=== PATIENT | male | born 1940 | race Caucasian/White ===

== ENCOUNTER 2016-12-31 10:17 | Day surgery (SDC) | payer OTHER ==
[2016-12-27 12:19] VITALS: BMI 26.1
[2016-12-31 12:37] VITALS: BP 110/62; PULSE 61; TEMP 98.3
--- NOTE | 2017-01-01 11:13 | PATH ---
Surgical Pathology Report Patient Name: MYLES BYRD [facility]. Rec. #: [id number] /Age/Gender: 1940 (Age: 76) / M Account: [id number] Location: [facility], [facility]-ENDOSCOPY Taken: 12/31/2016 Received: 12/31/2016 Reported: 01/01/2017 Physicians: Hugo Jain M.D. Specimen(s) Received A: POLYP AT CECUM B: POLYP AT TRANSVERSE COLON C: POLYP AT LEFT COLON Clinical History Family history of colon cancer Polyps Final Diagnosis A. CECUM, POLYP, BIOPSY: TUBULAR ADENOMA. B. TRANSVERSE COLON, POLYP, BIOPSY: SCANT FRAGMENT OF SUPERFICIAL BENIGN COLONIC EPITHELIUM; INSUFFICIENT FOR DIAGNOSIS. C. LEFT COLON, POLYP, BIOPSY: TUBULAR ADENOMA. Electronically Signed Chen Lauren M.D. Gross Description A. Received in formalin, labeled "polyp at cecum" is a torre, irregular portion of soft tissue measuring 0.2 cm. in greatest dimension. The specimen is submitted in toto in one cassette. B. Received is a formalin filled container labeled "polyp at transverse colon." There is no tissue identified within the container. The formalin is filtered and the filter bag is submitted in one cassette. C. Received in formalin, labeled "polyp at left colon" is a torre, irregular portion of soft tissue measuring 0.3 cm. in greatest dimension. The specimen is submitted in toto in one cassette. 12/31/201612/31/2016
== END 2016-12-31 12:30 | disposition home or self-care (01) ==
LOC: FASU-ENDO 10:17
PROVIDERS: ATTEND Internal Medicine Gastroenterology
PROC: 0DBL8ZX Excision of Transverse Colon, Via Natural or Artificial Opening Endoscopic, Diagnostic (ICD-10-PCS; 2016-12-31)
PROC: 0DBM8ZX Excision of Descending Colon, Via Natural or Artificial Opening Endoscopic, Diagnostic (ICD-10-PCS; 2016-12-31)
PROC: 0DBH8ZX Excision of Cecum, Via Natural or Artificial Opening Endoscopic, Diagnostic (ICD-10-PCS; principal; 2016-12-31 11:24)
DX: Z12.11 Encounter for screening for malignant neoplasm of colon (principal); Z80.0 Family history of malignant neoplasm of digestive organs; D12.0 Benign neoplasm of cecum; D12.4 Benign neoplasm of descending colon; K63.5 Polyp of colon; K57.30 Diverticulosis of large intestine without perforation or abscess without bleeding
CPT/HCPCS: 88305-TC

== ENCOUNTER 2017-06-03 17:46 | Emergency (ER) | payer OTHER ==
--- NOTE | 2017-06-03 18:06 | PDOC ---
History of Present Illness - General History Source: Patient Exam Limitations: No Limitations - History of Present Illness Initial Comments: 06/03/17 18:46 The patient is a 76 year old male, with a significant past medical history of HTN, HLD, AAA s/p repair, and GI bleed who presents to the emergency department with intermittent episodes of left lower abdominal pain since yesterday. The patient describes his pain as sharp pain localized at left flank pain that radiates to his abdominal area. He notes having about 4-5 episodes of vomiting ( nonbilious and nonbloody). He notes his pain today has been consistent and constant since 3:00pm today. He notes yesterday having a similar type of pain that was alleviated after vomiting. He denies any history of kidney stones. He denies any recent injury or trauma. He denies any recent fevers, chills, headache or dizziness. He denies any recent constipation. He denies any recent chest pain or shortness of breath. He denies any recent dysuria, frequency, urgency or hematuria. Allergies: NKA Past surgical history: None reported. Social History: Nonsmoker. Denies EtOH use and recreational drug use. <Shyam Nixon - Last Filed: 06/03/17 18:46> <Cuba Winkler - Last Filed: 06/06/17 00:50> - General Chief Complaint: Pain Stated Complaint: LEFT LOWER abd pain Time Seen by Provider: 06/03/17 17:55 Past History <Shyam Nixon - Last Filed: 06/03/17 18:46> - Past Medical History Anemia: Yes (ON IRON) Asthma: No Cancer: No Cardiac Disorders: Yes (PALPITATIONS) CVA: No COPD: No CHF: No Dementia: No Diabetes: No GI Disorders: Yes (LOWER GI BLEED REQUIRING MULTIPLE BLOOD TRANSFUSIONS 04/2014) Disorders: No HTN: Yes (DX 2011) Hypercholesterolemia: Yes (DX 2009) Liver Disease: No Seizures: No Thyroid Disease: No - Surgical History Abdominal Surgery: No Appendectomy: No Cardiac Surgery: No Cholecystectomy: No Lung Surgery: Yes (BENIGN MASS REMOVAL-2004) Neurologic Surgery: No Orthopedic Surgery: Yes (ACL REPAIR- LEFT KNEE-) - Psycho/Social/Smoking Cessation Hx Anxiety: No Suicidal Ideation: No Smoking History: Former smoker Have you smoked in the past 12 months: No If you are a former smoker, when did you quit?: 2003 Hx Alcohol Use: No (NONE SINCE 1987) Drug/Substance Use Hx: No Substance Use Type: None Hx Substance Use Treatment: No <Cuba Winkler - Last Filed: 06/06/17 00:50> - Past Medical History Allergies/Adverse Reactions: Allergies Allergy/AdvReac Type Severity Reaction Status Date / Time No Known Allergies Allergy Verified 06/03/17 17:47 Home Medications: Ambulatory Orders Atenolol [Tenormin -] 25 mg PO DAILY 12/27/13 Psyllium Husk [Metamucil] 0.52 gm PO HS capsule 01/13/16 Atorvastatin Ca [Lipitor] 10 mg PO HS 01/21/16 Acetaminophen [Tylenol .Extra-Strength -] 1,000 mg PO PRN PRN 12/27/16 Ondansetron [Zofran *Odt*] 8 mg SL TID PRN #15 od.tablet 06/03/17 Oxycodone HCl/Acetaminophen [Percocet 5-325 mg Tablet] 1 tab PO Q4H #20 tablet MDD 8 06/03/17 Tamsulosin HCl [Flomax] 0.4 mg PO DAILY #30 cap.er.24h 06/03/17 Review of Systems - Review of Systems Able to Perform ROS?: Yes Comments:: 06/03/17 18:46 CONSTITUTIONAL: No reported: Fever, Chills, Diaphoresis, Generalized Weakness, Malaise, Loss of Appetite HEENT: No reported: Rhinorrhea, Nasal Congestion, Throat Pain, Throat Swelling, Difficulty Swallowing, Mouth Swelling, Ear Pain, Eye Pain, Visual Changes CARDIOVASCULAR: No reported: Chest Pain, Syncope, Palpitations, Irregular Heart Rate, Lightheadedness, Peripheral Edema RESPIRATORY: No reported: Cough, Shortness of Breath, SOB with Exertion, Orthopnea, Wheezing , Stridor, Hemoptysis GASTROINTESTINAL: +LLQ pain. No reported: Nausea, Vomiting, Diarrhea, Constipation, Melena, Hematochezia GENITOURINARY: No reported: Dysuria, Frequency, Urgency, Hesitancy, Flank Pain, Genital Pain MUSCULOSKELETAL: No reported: Myalgia, Arthralgia, Joint Swelling, Back pain, Neck Pain SKIN: No reported: Rash, Itching, Pallor HEMATOLOGIC/IMMUNOLOGIC: No reported: Easy Bleeding, Easy Bruising, Lymphadenopathy, Frequent infections ENDOCRINE: No reported: Unexplained Weight Gain, Unexplained Weight Loss, Heat Intolerance , Cold Intolerance NEUROLOGIC: No reported: Headache, Focal Weakness, Paresthesias, Vertigo, Lightheadedness, Unsteady Gait, Seizure, Mental Status Changes, Incontinence PSYCHIATRIC: No reported: Anxiety, Depression <Shyam Nixon - Last Filed: 06/03/17 18:46> *Physical Exam - Vital Signs Last Vital Signs Temp Pulse Resp BP Pulse Ox 98.1 F 47 L 20 162/82 99 06/03/17 17:47 06/03/17 17:47 06/03/17 17:47 06/03/17 17:47 06/03/17 17:47 - Physical Exam Comments: 06/03/17 18:46 GENERAL: The patient is awake, alert, and fully oriented, Nontoxic - in no acute distress. HEAD: Normocephalic, atraumatic. EYES: extraocular movements intact, sclera anicteric, conjunctiva clear. ENT: Normal voice, Moist mucous membranes. NECK: Normal range of motion, supple LUNGS: Breath sounds equal, clear to auscultation bilaterally. No wheezes, no rhonchi, no rales. HEART: Bradycadic. Regular rate and rhythm, without murmur, rub or gallop. ABDOMEN: Mild LLQ tenderness. Soft,, normoactive bowel sounds. No guarding, no rebound.No CVA tenderness EXTREMITIES: Normal range of motion, no edema. No clubbing or cyanosis. No cords , erythema, or tenderness. NEUROLOGICAL: No facial asymmetry, Normal speech. PSYCH: Normal mood, normal affect. SKIN: Warm, Dry, normal turgor. <Shyam Nixon - Last Filed: 06/03/17 18:46> Heart Score/ECG Review - ECG Impressions Comment:: 06/03/17 18:43 Twelve-lead EKG was performed and reviewed by me. There is normal sinus rhythm with a rate of 51 The axis is normal. incomplete RBBB There is normal R wave progression There are no ST or T wave abnormalities. Impression: sinus bradycardia <Cbua Winkler - Last Filed: 06/06/17 00:50> ED Treatment Course - LABORATORY CBC & Chemistry Diagram: 06/03/17 18:55 06/03/17 18:55 <Cuba Winkler - Last Filed: 06/06/17 00:50> Medical Decision Making - Medical Decision Making 06/03/17 18:22 76y M hx of mutliple medical problems including aaa s/p repair, hl, htn, gib presents with intermittent L sided abdominal pain associated with vomiting since yesterday. Pt endorses about 1 hr episode of L sided abd pain and a few episodes of nbnb vomiting yesterday, and one episode of sudden onset of L flank pain associated omiting lasting about 3 hrs and currently almost resolved. No associated fever/chills, numbness/tingling/weakness, chest pain, diaphoresis. on exam pt in no distress, HR bradycardic, abd soft with mild tenderness in LLL suspect possible kidney stones will ck labs, ua anticipate CT pt declines meds right now as he is asymptomatic 06/03/17 19:01 pt signed out to dr. Torres to fu with labs and reassess the pt <Cuba Winkler - Last Filed: 06/06/17 00:50> *DC/Admit/Observation/Transfer - Attestations Scribe Attestion: 06/03/17 18:46 Documentation prepared by Shyam Nixon, acting as medical front desk specialist for Cuba Winkler MD. <Shyam Nixon - Last Filed: 06/03/17 18:46> <C[place] Winkler - Last Filed: 06/06/17 00:50> Diagnosis at time of Disposition: Kidney stone on left side - Discharge Dispostion Disposition: HOME Condition at time of disposition: Stable - Prescriptions Prescriptions: Tamsulosin HCl [Flomax] 0.4 mg PO DAILY #30 cap.er.24h Oxycodone HCl/Acetaminophen [Percocet 5-325 mg Tablet] 1 tab PO Q4H #20 tablet MDD 8 Ondansetron [Zofran *Odt*] 8 mg SL TID PRN #15 od.tablet PRN Reason: Nausea - Patient Instructions Additional Instructions: Your CAT scan shows that you do have a 5 mm kidney stone that is causing some mild blockage of the urine flow. It is important that you follow-up with a urologist. If you do not have a urologist call Dr. Rendon at [phone] and appointment this week. Strain your urine. For the pain take Percocet one tablet as often as every 4-6 hours if needed the Percocet will make you drowsy so you cannot drive or go to work if you take it however during the daytime hours Naprosyn or ibuprofen may be adequate to control your pain. For nausea take Zofran 1 tablet as often as every 6-8 hours if needed. Take Flomax to help keep the urine flowing. Return to the emergency department immediately with ANY new, persistent or worsening symptoms. Continue any medications as previously prescribed by your physician. You should follow up with your primary doctor as soon as possible regarding today's emergency department visit. . Please make sure your doctor reviews the results of your emergency evaluation. Thank you for coming to the Emergency Department today for your care. It was a pleasure to see you today. Please note that your evaluation is INCOMPLETE until you follow-up with your doctor.
[2017-06-03 18:09] VITALS: TEMP 98.1; BMI 26.6
[2017-06-03 19:04] LABS: BASOPHIL 0.9 % (0-2.0); EOSINOPHIL 1.8 % (0-4.5); MCH 31.9 pg (25.7-33.7); MCHC 33.6 g/dl (32.0-35.9); MEAN CELL VOLUME 94.9 fl (80-96); NEUTROPHILS 80.5 % (42.8-82.8); PLATELET COUNT 186 K/MM3 (134-434); RDW 13.9 % (11.9-15.9); WHITE BLOOD COUNT 10.1 K/mm3 (4.0-10.8)
[2017-06-03 19:20] LABS: ALBUMIN 3.7 g/dl (3.5-5.0); ALK PHOS 46 U/L (32-92); ANION GAP 6 (8-16); BILIRUBIN,TOTAL 0.5 mg/dl (0.2-1.0); CALCIUM 9.4 mg/dl (8.4-10.2); CO2 30 mmol/L (22-28); GLUCOSE,RANDOM 106 mg/dl (74-106); SGOT/AST 16 U/L (10-42); SGPT/ALT 11 U/L (10-40); TOT PROT 6.7 g/dl (6.4-8.3)
--- NOTE | 2017-06-03 19:47 | PDOC ---
*Physical Exam - Vital Signs Last Vital Signs Temp Pulse Resp BP Pulse Ox 98.1 F 47 L 20 162/82 99 06/03/17 17:47 06/03/17 17:47 06/03/17 17:47 06/03/17 17:47 06/03/17 17:47 ED Treatment Course - LABORATORY CBC & Chemistry Diagram: 06/03/17 18:55 06/03/17 18:55 - ADDITIONAL ORDERS Additional order review: Laboratory Results 06/03/17 18:55 Sodium 136 Potassium 3.9 Chloride 100 Carbon Dioxide 30 H Anion Gap 6 L BUN 20 H D Creatinine 1.0 Creat Clearance w eGFR > 60 Random Glucose 106 Calcium 9.4 Total Bilirubin 0.5 D AST 16 ALT 11 Alkaline Phosphatase 46 Total Protein 6.7 Albumin 3.7 06/03/17 18:55 RBC 5.01 MCV 94.9 MCHC 33.6 RDW 13.9 MPV 8.0 D Neutrophils % 80.5 D Lymphocytes % 11.8 D Monocytes % 5.0 Eosinophils % 1.8 Basophils % 0.9 Progress Note - Progress Note Progress Note: Care of this patient was transferred to tn from Dr. swann at 1900 hrs. This is a 76-year-old male who comes in complaining of left flank pain that is Jessica times today. Patient has a workup pending to rule out renal colic. CT scan shows a 5 mm proximal left ureteral calculus with mild hydronephrosis in addition to that there is a right nephrolithiasis but no evidence of hydronephrosis or obstructive uropathy Patient's pain is resolved at this point Patient given prescriptions for Percocet, Zofran and Flomax Patient told to follow-up with a urologist Patient discharged home will follow-up with his primary care doctor for referral to a urologist *DC/Admit/Observation/Transfer Diagnosis at time of Disposition: Kidney stone on left side - Discharge Dispostion Disposition: HOME Admit: Yes - Patient Instructions Additional Instructions: Your CAT scan shows that you do have a 5 mm kidney stone that is causing some mild blockage of the urine flow. It is important that you follow-up with a urologist. If you do not have a urologist call Dr. Rendon at [phone] and appointment this week. Strain your urine. For the pain take Percocet one tablet as often as every 4-6 hours if needed the Percocet will make you drowsy so you cannot drive or go to work if you take it however during the daytime hours Naprosyn or ibuprofen may be adequate to control your pain. For nausea take Zofran 1 tablet as often as every 6-8 hours if needed. Take Flomax to help keep the urine flowing. Return to the emergency department immediately with ANY new, persistent or worsening symptoms. Continue any medications as previously prescribed by your physician. You should follow up with your primary doctor as soon as possible regarding today's emergency department visit. . Please make sure your doctor reviews the results of your emergency evaluation. Thank you for coming to the Emergency Department today for your care. It was a pleasure to see you today. Please note that your evaluation is INCOMPLETE until you follow-up with your doctor.
[2017-06-03 19:48] LABS: PH,URINE 6.5 (4.5-8); URINE APPEARANCE Clear; URINE BILIRUBIN Negative (NEGATIVE); URINE GLUCOSE (UA) Negative (NEGATIVE); URINE KETONE Negative (NEGATIVE); URINE LEUK ESTERASE Negative (NEGATIVE); URINE NITRITE Negative (NEGATIVE); URINE PROTEIN Trace (NEGATIVE); URINE UROBILINOGEN 0.2 (0.2-1.0)
[2017-06-03 19:57] LABS: URINE COLOR YELLOW
[2017-06-03 20:30] LABS: URINE BLOOD 3+ (NEGATIVE)
[2017-06-03 22:40] VITALS: BP 154/94; PULSE 51
--- NOTE | 2017-06-04 21:03 | EKG ---
Test Reason : Blood Pressure : / mmHG Vent. Rate : 051 BPM Atrial Rate : 051 BPM P-R Int : 146 ms QRS Dur : 104 ms QT Int : 466 ms P-R-T Axes : 066 007 061 degrees QTc Int : 429 ms SINUS BRADYCARDIA INCOMPLETE RIGHT BUNDLE BRANCH BLOCK BORDERLINE ECG NO PREVIOUS ECGS AVAILABLE REPEAT EKG IF CLINICALLY INDICATED Confirmed by MOLLY METCALF MD ([id number]) on 06/04/2017 9:02:52 PM Referred By: INDIRA Confirmed By:MOLLY METCALF MD
== END 2017-06-03 22:37 | disposition home or self-care (01) ==
LOC: FER 17:46
DX: N20.0 Calculus of kidney (principal); I10 Essential (primary) hypertension; E78.5 Hyperlipidemia, unspecified; I71.4 Abdominal aortic aneurysm, without rupture; R00.2 Palpitations; Z87.891 Personal history of nicotine dependence
CPT/HCPCS: 36415; 74176-TC; 80053; 81003; 85025; 93005; 99283-25

== ENCOUNTER 2017-06-13 12:34 | Day surgery (SDC) | payer OTHER ==
[2017-06-12 14:13] VITALS: BMI 24.3
[2017-06-13] MEDS ORDERED: ACETAMINOPHEN 1000 MG/100 ML VIAL (NON FORMULARY) IVPB ONE (14:28)
--- NOTE | 2017-06-13 14:28 | HP ---
History & Physical Update - History History: No Change - Physical Physical: No Change - Assessment Assessment: No Change - Plan Plan: No Change
[2017-06-13] MEDS ORDERED: DEXTROSE 5%-0.45% SALINE 1,000 ML IV SCH (14:30)
[2017-06-13] MEDS ORDERED: PROPOFOL 20 ML ONE (14:54)
[2017-06-13] MEDS ORDERED: LIDOCAINE HCL/PF 2% SDV 5ML VIAL ONE (14:55)
[2017-06-13] MEDS ORDERED: DEXAMETHASONE SOD PHOSPHATE 4 MG/1 ML VIAL ONE (14:56)
[2017-06-13] MEDS ORDERED: ceFAZolin SODIUM 1 GM VIAL IVPB ONE (15:15)
[2017-06-13] MEDS ORDERED: ceFAZolin SODIUM 1 GM VIAL ONE (15:18)
[2017-06-13] MEDS ORDERED: PROMETHAZINE HCL 25 MG/1 ML VIAL IVPUSH PRN (16:10)
[2017-06-13] MEDS ORDERED: oxyCODONE HCL 5 MG TABLET PO PRN (16:10)
[2017-06-13] MEDS ORDERED: LACTATED RINGERS SOLUTION 1,000 ML IV SCH (16:15)
[2017-06-13] MEDS ORDERED: ACETAMINOPHEN INJECTION 100 ML IVPB ONE (16:51)
--- NOTE | 2017-06-13 17:08 | OP ---
DATE OF OPERATION: 06/13/2017 PREOPERATIVE DIAGNOSES: Left ureteral stone, right renal stone, left renal colic. PROCEDURE: Cystoscopy, left ureteroscopic stone extraction, and left ureteral stent placement with retrograde pyelogram, and right ureteroscopic laser lithotripsy with retrograde pyelogram and right ureteral stent placement. SURGEON: Reynaldo Rendon MD DRAINS: A 6 x 26 double-J ureteral stent bilaterally. ESTIMATED BLOOD LOSS: Minimal. SPECIMEN: Stone. PREOPERATIVE INDICATIONS: The patient is a 76-year-old male who presents with left renal colic. He has a stone in his left ureter. He also has a stone in the right kidney. DESCRIPTION OF OPERATION: The patient was brought to the OR, placed on the table in supine position, given general anesthesia and IV antibiotics, and placed in the modified lithotomy position. Timeout was performed. Groin was prepped and draped sterilely. Cystoscopy was performed. The urethra and prostate appeared to be unremarkable. The bladder was also normal. The left UO was visualized, and there was a stone in the distal ureter. A rigid ureteroscope was passed into the left ureter. A stone basket was used, and the stone was extracted. The rest of the ureter was examined, and no other stones were seen. Left retrograde pyelogram was performed which also confirmed no other filling defects. However, there was some tortuosity of the upper ureter from the chronic obstruction. A 6 x 26 double-J ureteral stent was left in place with 1 loop in the kidney, 1 loop in the bladder. On the right side, similarly, a wire was passed up into the right kidney under fluoroscopic guidance. A 10-Spanish dual-lumen catheter was used to dilate the ureter, and over a second wire, after retrograde pyelogram, a flexible ureteroscope was passed. A stone was seen in the upper pole. This was broken up with a laser fiber. No other stones were seen in the kidney or along the course of the ureter. There did not appear to be any injuries along the ureter. The scope was removed. Over the remaining wire, another 6 x 26 double-J ureteral stent was left in place on the right side, and position was confirmed on fluoroscopy direct vision. The bladder was emptied. The patient was woken up. REYNALDO RENDON M.D. [id number]
[2017-06-13 17:53] VITALS: TEMP 97.7
[2017-06-13 18:38] VITALS: BP 164/80; PULSE 57
--- NOTE | 2017-06-17 15:08 | PATH ---
Surgical Pathology Report Patient Name: MYLES BYRD Med. Rec. #: [id number] /Age/Gender: 1940 (Age: 76) / M Account: [id number] Location: [facility] SURG[facility] Taken: 06/13/2017 Received: 06/14/2017 Reported: 06/17/2017 Physicians: Reynaldo Rendon M.D. Specimen(s) Received URETHRAL STONE Clinical History Urethral stone Final Diagnosis URETERAL STONE: CALCULUS (GROSS EXAM) SPECIMEN SENT FOR CHEMICAL ANALYSIS. Electronically Signed Saturnino Arredondo M.D. Gross Description Received fresh labeled "urethral stone" is a 0.4 cm in greatest dimension black, irregular calculus which is sent for chemical analysis. /06/14/201706/14/2017
== END 2017-06-13 18:38 | disposition home or self-care (01) ==
LOC: JASU-SURG 12:34
PROVIDERS: ATTEND Urology
PROC: BT14YZZ Fluoroscopy of Kidneys, Ureters and Bladder using Other Contrast (ICD-10-PCS; 2017-06-13)
PROC: 0TF38ZZ Fragmentation in Right Kidney Pelvis, Via Natural or Artificial Opening Endoscopic (ICD-10-PCS; principal; 2017-06-13 14:00)
PROC: 0T768DZ Dilation of Right Ureter with Intraluminal Device, Via Natural or Artificial Opening Endoscopic (ICD-10-PCS; 2017-06-13 14:00)
PROC: 0TC78ZZ Extirpation of Matter from Left Ureter, Via Natural or Artificial Opening Endoscopic (ICD-10-PCS; 2017-06-13 14:00)
DX: N20.1 Calculus of ureter (principal); N20.0 Calculus of kidney
CPT/HCPCS: 36415; 76000-TC; 82360; 88300-TC; 94760

== ENCOUNTER 2019-06-24 08:12 | Day surgery (SDC) | payer OTHER ==
[2019-06-23 09:33] VITALS: BMI 25.8
[2019-06-24] MEDS: CYCLOPENTOLATE 2% OPHTH SOLN 2 ML BOTTLE ONE ×3 (08:35→08:45)
[2019-06-24] MEDS: CIPROFLOXACIN 0.3% EYE DROPS 5 ML BOTTLE ONE ×3 (08:35→08:45)
[2019-06-24] MEDS: TROPICAMIDE 1% OPHTH SOLN 15 ML BOTTLE ONE ×3 (08:35→08:45)
[2019-06-24] MEDS: PHENYLEPHRINE 2.5% OPHTH SOLN 15 ML BOTTLE ONE ×3 (08:35→08:45)
[2019-06-24] MEDS ORDERED: LIDOCAINE 1% P/F 10 MG/ML VIAL ONE (09:23)
[2019-06-24] MEDS ORDERED: BSS (NA/CA/MG/K) BALANCED SALT SOLUTION OPHTH SOLN 15 ML BOTTLE ONE (09:23)
[2019-06-24] MEDS ORDERED: TETRACAINE 0.5% OPHTH SOLN 2 ML BOTTLE ONE (09:23)
[2019-06-24] MEDS ORDERED: NEO/POLYMYX B SULF/DEXAMETH OPHTHALMIC 5ML BOTTLE ONE (09:24)
[2019-06-24] MEDS ORDERED: CARBACHOL 0.01% INTRA-OCULAR 1.5 ML VIAL ONE (09:24)
[2019-06-24] MEDS ORDERED: MIDAZOLAM HCL 2 MG/2 ML SINGLE DOSE VIAL ONE (09:29)
[2019-06-24 10:52] VITALS: TEMP 97.9
[2019-06-24 10:53] VITALS: BP 143/86; PULSE 57
--- NOTE | 2019-06-24 15:54 | OP ---
DATE OF OPERATION: 06/24/2019 OPERATIVE PROCEDURE: Lens phacoemulsification with posterior chamber intraocular lens placement left eye. PREOPERATIVE DIAGNOSIS: Visually significant cataract of left eye. POSTOPERATIVE DIAGNOSIS: Visually significant cataract of left eye. SURGEON: Geovani Valadez MD ANESTHESIA: MAC. ANESTHESIOLOGIST: PROCEDURE: The patient was brought to the operating room and placed under monitored anesthesia care by Anesthesia. A drop of Tetracaine was then placed over the left eye. The patient was then prepped and draped in the usual sterile manner. A speculum was then placed over the left eye. The eye was then well irrigated with copious amounts of BSS (balanced salt solution). The operating microscope was then moved into position. A paracentesis was performed using a 15-degree blade. At this point 0.5 mL of 1% preservative-free lidocaine was injected into the anterior chamber. Amvisc plus was then injected into the anterior chamber. A clear corneal incision was then formed using a 2.2-mm keratome. A capsulorrhexis was then performed in a continuous circular fashion beginning with a cystotome, completed with an Utratas forceps. Hydrodissection was then performed using BSS on a cannula. The phaco probe was then introduced through the corneal wound and the cataract was removed using the phaco chop technique. Approximately 3 seconds of absolute phaco time was used. The remaining cortex was then removed using irrigation and aspiration with an I/A probe. The capsule was then filled with regular Amvisc and the capsule was noted to be intact. A previously selected foldable posterior chamber intraocular lens was then injected into the capsule through the corneal wound using a lens injector. It was then dialed into position using a Sinskey hook. The Amvisc was then removed using irrigation and aspiration. Miostat was then injected through the paracentesis to constrict the pupil. The paracentesis and corneal wound were then hydrated and noted to be watertight. A drop of Maxitrol was then placed over the eye. The speculum was removed, and clear shield was taped over the eye. The patient tolerated the procedure well and there were no surgical complications. The patient was asked to follow up in my office the next day. GEOVANI VALADEZ M.D. [id number]
== END 2019-06-24 10:45 | disposition home or self-care (01) ==
LOC: FASU 08:12
PROVIDERS: ATTEND Ophthalmology
PROC: 08RK3JZ Replacement of Left Lens with Synthetic Substitute, Percutaneous Approach (ICD-10-PCS; principal; 2019-06-24 09:41)
DX: H26.8 Other specified cataract (principal)

== ENCOUNTER 2020-06-06 07:25 | Day surgery (SDC) | payer OTHER ==
[2020-06-02 15:12] VITALS: BMI 25.5
[2020-06-06] MEDS ORDERED: LIDOCAINE HCL/PF 2% SDV 5ML VIAL ONE (07:40)
[2020-06-06] MEDS ORDERED: PROPOFOL 20 ML ONE ×3 (07:40)
[2020-06-06 09:58] VITALS: TEMP 98
[2020-06-06 10:01] VITALS: BP 110/68; PULSE 52
--- NOTE | 2020-06-09 16:17 | PATH ---
Surgical Pathology Report Patient Name: MYLES BYRD Med. Rec. #: [id number] /Age/Gender: 1940 (Age: 79) / M Account: [id number] Location: [facility] Taken: 06/06/2020 Received: 06/06/2020 Reported: 06/09/2020 Physicians: Hugo Jain M.D. Specimen(s) Received BIOPSY POLYP CECUM Clinical History History of polyps Postoperative diagnosis: Diverticulosis, colon polyp Final Diagnosis CECUM, POLYP, BIOPSY: COLONIC MUCOSA SHOWING MILD SURFACE HYPERPLASTIC CHANGE. Electronically Signed Chen Lauren M.D. Gross Description Received in formalin, labeled "biopsy polyp cecum" is a torre, irregular portion of soft tissue measuring 0.5 cm. in greatest dimension. The specimen is submitted in toto in one cassette. 06/07/2020 [facility]06/07/2020
== END 2020-06-06 10:03 | disposition home or self-care (01) ==
LOC: FASU-ENDO 07:25
PROVIDERS: ATTEND Internal Medicine Gastroenterology
PROC: 0DBH8ZX Excision of Cecum, Via Natural or Artificial Opening Endoscopic, Diagnostic (ICD-10-PCS; principal; 2020-06-06 08:55)
DX: Z86.010 Personal history of colon polyps (principal); Z80.0 Family history of malignant neoplasm of digestive organs; K57.30 Diverticulosis of large intestine without perforation or abscess without bleeding
CPT/HCPCS: 88305-TC

== ENCOUNTER 2020-09-21 07:43 | Inpatient (IN) | payer OTHER ==
[2020-09-15 16:18] VITALS: BMI 25.5
[2020-09-21] MEDS ORDERED: VANCOMYCIN 1,000 MG VIAL (RESTRICTED TO ID ONLY) ONE (07:57)
[2020-09-21] MEDS ORDERED: MIDAZOLAM HCL 2 MG/2 ML SINGLE DOSE VIAL ONE (08:04)
[2020-09-21] MEDS ORDERED: BUPIVACAINE HCL/PF 0.5% (5 MG/ML) 30 ML VIAL IJ ONE (08:04)
[2020-09-21] MEDS ORDERED: BUPIVACAINE HCL/PF 0.5% (5MG/ML) 10 ML VIAL ONE (08:56)
[2020-09-21] MEDS ORDERED: BUPIVICAINE 0.25%/MORPH PF/KETOROLAC - 51ML DISP.SYRINGE IA ONE (09:14)
[2020-09-21] MEDS ORDERED: EPHEDRINE SULFATE/0.9% NACL/PF 50 MG/10 ML SYRINGE NR ONE (09:27)
[2020-09-21] MEDS ORDERED: ONDANSETRON 4 MG/2 ML VIAL ONE (09:27)
[2020-09-21] MEDS ORDERED: PHENYLEPHRINE HCL 10 MG/1 ML SINGLE DOSE VIAL ONE (09:48)
[2020-09-21] MEDS ORDERED: VANCOMYCIN 1,000 MG VIAL (RESTRICTED TO ID ONLY) IVPB ONE ×2 (09:53→11:03)
[2020-09-21] MEDS ORDERED: ePHEDrine SULFATE 50 MG/1 ML AMPULE ONE (10:58)
[2020-09-21] MEDS ORDERED: TRANEXAMIC ACID 1000 MG/10 ML VIAL ONE (10:59)
[2020-09-21] MEDS ORDERED: ACETAMINOPHEN 325 MG TABLET (FP) PO PRN (11:35)
[2020-09-21] MEDS ORDERED: ONDANSETRON 4 MG/2 ML VIAL IVPUSH PRN (12:13)
[2020-09-21] MEDS ORDERED: LACTATED RINGERS SOLUTION 1,000 ML IV SCH (12:15)
[2020-09-21] MEDS: oxyCODONE HCL 5 MG TABLET PO PRN ×2 (15:25→21:18)
[2020-09-21] MEDS: ceFAZolin 2 GRAM PREMIX BAG IVPB SCH (17:03)
[2020-09-21 18:38] LABS: HEMOGLOBIN 12.7 GM/dl (11.7-16.9); MCHC 32.6 g/dl (32.0-35.9); MEAN CELL VOLUME 98.3 fl (80-96); PLATELET COUNT 198 K/MM3 (134-434); RBC 3.97 M/mm3 (4.00-5.60); RDW 13.8 % (11.9-15.9); WHITE BLOOD COUNT 9.1 K/mm3 (4.0-10.8)
[2020-09-21] MEDS: SENNOSIDES/DOCUSATE COMBO (SENNA PLUS) TABLET (UD) PO SCH (21:17)
[2020-09-21] MEDS: ATORVASTATIN CA 20 MG TABLET (FP) PO SCH (21:17)
[2020-09-21] MEDS: oxyCODONE HCL 10 MG SUSTAINED ACTING TABLET PO SCH (21:18)
[2020-09-22] MEDS: ceFAZolin 2 GRAM PREMIX BAG IVPB SCH (01:21)
[2020-09-22] MEDS: oxyCODONE HCL 5 MG TABLET PO PRN ×3 (05:58→19:48)
[2020-09-22] MEDS: ENOXAPARIN NA (PORCINE) 40 MG/0.4 ML DISP.SYRIN SQ SCH (08:58)
[2020-09-22] MEDS: POLYETHYLENE GLYCOL 3350 119 GM BTL PO SCH (09:03)
[2020-09-22 09:07] LABS: HEMATOCRIT 39.1 % (35.4-49); MCH 32.7 pg (25.7-33.7); MCHC 33.2 g/dl (32.0-35.9); MEAN CELL VOLUME 98.5 fl (80-96); MEAN PLT VOLUME 8.6 fl (7.5-11.1); PLATELET COUNT 181 K/MM3 (134-434); RBC 3.97 M/mm3 (4.00-5.60); RDW 13.6 % (11.9-15.9); WHITE BLOOD COUNT 9.3 K/mm3 (4.0-10.8)
[2020-09-22 09:10] LABS: BILIRUBIN,TOTAL 0.9 mg/dl (0.2-1); CALCIUM 8.2 mg/dl (8.5-10); CREATININE 0.7 mg/dl (0.55-1.3); MAGNESIUM 1.6 mg/dL (1.8-2.4); TOT PROT 5.6 g/dl (6.4-8.2)
[2020-09-22] MEDS ORDERED: [UNRECOGNIZED DRUG - OTHER] PO SCH (10:00)
[2020-09-22] MEDS ORDERED: PSYLLIUM HUSK PO SCH (10:00)
[2020-09-22] MEDS ORDERED: MAGNESIUM SULF 50% (8.12 MEQ/2 ML-1 GM VIAL) IVPB ONE (10:08)
[2020-09-22] MEDS ORDERED: MAGNESIUM SULFATE IN WATER 2 GM/50 ML IVPB IVPB ONE (10:15)
[2020-09-22] MEDS: oxyCODONE HCL 10 MG SUSTAINED ACTING TABLET PO SCH ×2 (10:22→21:20)
[2020-09-22] MEDS: SENNOSIDES/DOCUSATE COMBO (SENNA PLUS) TABLET (UD) PO SCH ×2 (10:22→21:21)
[2020-09-22] MEDS: CHOLECALCIFEROL (VIT D3) 1,000 UNIT (25 MCG) TABLET PO SCH (10:23)
[2020-09-22] MEDS: ATENOLOL 25 MG TABLET (FP) PO SCH (10:23)
[2020-09-22] MEDS: ATORVASTATIN CA 20 MG TABLET (FP) PO SCH (21:20)
[2020-09-23 06:14] VITALS: BP 124/62; PULSE 78; TEMP 99.1
[2020-09-23] MEDS: oxyCODONE HCL 5 MG TABLET PO PRN (06:43)
[2020-09-23 07:56] LABS: BASO % 0.3 % (0-2.0); EOS % 1.5 % (0-4.5); HEMATOCRIT 36.4 % (35.4-49); HEMOGLOBIN 12.2 GM/dl (11.7-16.9); LYMPH % 9.7 % (8-40); MCH 32.6 pg (25.7-33.7); MCHC 33.6 g/dl (32.0-35.9); MEAN CELL VOLUME 97.1 fl (80-96); MEAN PLT VOLUME 8.7 fl (7.5-11.1); MONO % 9.5 % (3.8-10.2); PLATELET COUNT 177 K/MM3 (134-434); RBC 3.75 M/mm3 (4.00-5.60); RDW 13.6 % (11.9-15.9); WHITE BLOOD COUNT 11.6 K/mm3 (4.0-10.8)
[2020-09-23 08:00] LABS: ALBUMIN 2.8 g/dl (3.4-5.0); CALCIUM 8.4 mg/dl (8.5-10); CREATININE 0.8 mg/dl (0.55-1.3); MAGNESIUM 1.9 mg/dL (1.8-2.4); POTASSIUM 4.6 mmol/L (3.5-5.1); TOT PROT 5.6 g/dl (6.4-8.2)
[2020-09-23 08:12] LABS: BILIRUBIN,TOTAL 1.7 mg/dl (0.2-1)
[2020-09-23] MEDS: SENNOSIDES/DOCUSATE COMBO (SENNA PLUS) TABLET (UD) PO SCH (09:02)
[2020-09-23] MEDS: ENOXAPARIN NA (PORCINE) 40 MG/0.4 ML DISP.SYRIN SQ SCH (09:02)
[2020-09-23] MEDS: ATENOLOL 25 MG TABLET (FP) PO SCH (09:03)
[2020-09-23] MEDS: oxyCODONE HCL 10 MG SUSTAINED ACTING TABLET PO SCH (09:03)
[2020-09-23] MEDS: CHOLECALCIFEROL (VIT D3) 1,000 UNIT (25 MCG) TABLET PO SCH (09:03)
[2020-09-23] MEDS: POLYETHYLENE GLYCOL 3350 119 GM BTL PO SCH (09:06)
== END 2020-09-23 13:44 | disposition home or self-care (01) | DRG 470 ==
LOC: FM/S 07:43
PROVIDERS: ADMIT Orthopaedic Surgery; ATTEND Orthopaedic Surgery
PROC: 8E0W0CZ Robotic Assisted Procedure of Trunk Region, Open Approach (ICD-10-PCS; 2020-09-21)
PROC: 0SR90JZ Replacement of Right Hip Joint with Synthetic Substitute, Open Approach (ICD-10-PCS; principal; 2020-09-21 09:43)
DX: M16.11 Unilateral primary osteoarthritis, right hip (principal); I10 Essential (primary) hypertension; E78.5 Hyperlipidemia, unspecified; I25.10 Atherosclerotic heart disease of native coronary artery without angina pectoris; J44.9 Chronic obstructive pulmonary disease, unspecified; I49.9 Cardiac arrhythmia, unspecified; K57.90 Diverticulosis of intestine, part unspecified, without perforation or abscess without bleeding; Z87.442 Personal history of urinary calculi
CPT/HCPCS: 36415; 73502-TC-RT-FY; 80053; 82248; 83735; 85025; 85027; 88304-TC; 88311-TC; 94760; 97116-GP; 97162-GP

== ENCOUNTER 2024-03-27 08:44 | Emergency (ER) | payer OTHER ==
[2024-03-27 08:56] VITALS: BP 165/90; PULSE 51; RESP 18; TEMP 98.4; BMI 28.4
== END 2024-03-27 14:02 | disposition home or self-care (01) ==
LOC: FER 08:44
DX: R07.9 Chest pain, unspecified (principal); W19.XXXA Unspecified fall, initial encounter
CPT/HCPCS: 70450-TC; 70486-TC; 71250-TC; 72125-TC; 73110-TC-RT-FY; 73130-TC-RT-FY; 74150-TC; 99284-25